=== PATIENT | female | born 1985 | race Hispanic/Latino ===

== ENCOUNTER 2017-12-02 09:11 | Emergency (ER) | payer MEDICAID, OTHER ==
[2017-12-02 09:55] LABS: BASOPHILS % (AUTO) 0.3 % (0.0-5.0); EOSINOPHILS % (AUTO) 1.1 % (0.0-8.0); HEMATOCRIT 44.6 % (36-48); LYMPHOCYTES % (AUTO) 24.9 % (21.0-51.0); MEAN CORPUSCULAR HEMOGLOBIN 30.5 pg (27.0-33.0); MEAN CORPUSCULAR HGB CONC 32.9 g/dL (32.0-36.0); MEAN CORPUSCULAR VOLUME 92.7 fL (79-99); MONOCYTES % (AUTO) 6.7 % (3.0-13.0); PLATELET COUNT (AUTO) 334 K/uL (130-400); RED BLOOD CELL COUNT(AUTO) 4.81 MIL/uL (4.00-5.50); RED CELL DISTRIBUTION WIDTH 12.8 % (11.0-15.5); WHITE BLOOD COUNT (AUTO) 11.7 K/uL (4.8-10.8)
[2017-12-02 10:07] LABS: INR 0.89 (0.85-1.15); PARTIAL THROMBOPLASTIN TIME 30.2 SEC (26.3-35.5); PROTHROMBIN TIME 9.4 SEC (9.6-11.6)
[2017-12-02 10:16] LABS: CREATININE 0.7 mg/dL (0.5-1.5)
[2017-12-02 10:21] LABS: ALBUMIN 3.9 g/dL (3.5-5.0); BILIRUBIN,TOTAL 0.2 mg/dL (0.2-1.0); TOTAL PROTEIN, SERUM 7.9 g/dL (6.0-8.3)
[2017-12-02 10:24] LABS: APPEARANCE,URINE Clear (CLEAR); BILIRUBIN,URINE Negative (NEGATIVE); COLOR,URINE Yellow (YELLOW); GLUCOSE, URINE (UA) Negative (NEGATIVE); KETONES,URINE Negative (NEGATIVE); LEUKOCYTE ESTERASE ,URINE Negative (NEGATIVE); NITRATE,URINE Negative (NEGATIVE); OCCULT BLOOD,URINE Trace (NEGATIVE); PROTEIN,URINE Negative (NEGATIVE); UROBILINOGEN,URINE 0.2 mg/dL (0.2-1.0)
[2017-12-02 10:34] LABS: BACTERIA,URINE Rare /HPF (None Seen); MUCUS,URINE Rare LPF (None Seen); RBC,URINE 0-1 /HPF (0-1); SQUAMOUS EPITHELIAL CELL,UR Few /HPF (0-2); WBC,URINE None Seen /HPF (0-1)
[2017-12-02] MEDS ORDERED: LEVOFLOXACIN 500 MG TABLET ONE (11:21)
[2017-12-02] MEDS ORDERED: METRONIDAZOLE 500MG/100ML BAG 100 ML ONE (11:22)
== END 2017-12-02 12:51 | disposition home or self-care (01) ==
LOC: EDH 09:11
DX: K57.92 Diverticulitis of intestine, part unspecified, without perforation or abscess without bleeding (principal); I10 Essential (primary) hypertension; Z87.891 Personal history of nicotine dependence; Z90.710 Acquired absence of both cervix and uterus
CPT/HCPCS: 36415; 74176; 80053; 81001; 82150; 82270; 83690; 85025; 85610; 85730; 96374; 99285; J3490

== ENCOUNTER → 2023-12-01 | Outpatient (CLI) | payer OTHER ==
[~2023-12-01] VITALS: Ht 10.2 cm; Wt 106.6 kg
== END | disposition home or self-care (01) ==
LOC: DTH 15:09
PROVIDERS: ATTEND Surgery
DX: G47.33 Obstructive sleep apnea (adult) (pediatric) (principal); E66.01 Morbid (severe) obesity due to excess calories; E11.9 Type 2 diabetes mellitus without complications; I10 Essential (primary) hypertension; M19.91 Primary osteoarthritis, unspecified site; E78.00 Pure hypercholesterolemia, unspecified; K76.0 Fatty (change of) liver, not elsewhere classified; K21.9 Gastro-esophageal reflux disease without esophagitis
CPT/HCPCS: 97802

== ENCOUNTER 2024-11-16 06:22 | Day surgery (SDC) | payer BC ==
[2024-11-12 08:50] LABS: BASOPHILS # (AUTO) 0.04 K/uL (0.00-0.20); BASOPHILS % (AUTO) 0.4 % (0.0-5.0); EOSINOPHILS # (AUTO) 0.18 K/uL (0.00-0.70); HEMATOCRIT 46.8 % (36-48); IMMATURE GRANULOCYTE ABSOLUTE 0.02 K/uL (0-1); LYMPHOCYTES # (AUTO) 4.3 K/uL (1.0-4.8); LYMPHOCYTES % (AUTO) 47.3 % (21.0-51.0); MEAN CORPUSCULAR HEMOGLOBIN 29.8 pg (27.0-33.0); MEAN CORPUSCULAR HGB CONC 32.1 g/dL (32.0-36.0); MEAN CORPUSCULAR VOLUME 92.9 fL (79-99); MONOCYTES # (AUTO) 0.7 K/uL (0.1-1.0); MONOCYTES % (AUTO) 7.9 % (3.0-13.0); NEUTROPHILS # (AUTO) 3.9 K/uL (1.8-7.7); NEUTROPHILS % (AUTO) 42.2 % (40.0-77.0); PLATELET COUNT (AUTO) 345 K/uL (130-400); RED BLOOD CELL COUNT(AUTO) 5.04 MIL/uL (4.00-5.50); RED CELL DISTRIBUTION WIDTH 12.5 % (11.0-15.5); WHITE BLOOD COUNT (AUTO) 9.1 K/uL (4.8-10.8)
[2024-11-12 09:02] LABS: ALBUMIN 4.1 g/dL (3.5-5.0); BILIRUBIN,TOTAL 0.2 mg/dL (0.2-1.0); CREATININE 0.6 mg/dL (0.5-1.0); POTASSIUM 4.4 mmol/L (3.5-5.1); TOTAL PROTEIN, SERUM 8.3 g/dL (6.0-8.3)
--- NOTE | 2024-11-12 09:23 | EKG ---
[facility] Test Date: 2024-11-12 Test Time: 08:44:43 Pat Name: AIDAN TELLES Department: [facility] Room: Gender: F Master Planner: [id number] : 1985 Requested By: FLEX HERNANDEZ Order Number: [id number] Reading MD: Reza Jerry Measurements Intervals [place] Rate: 91 P: 36 [place]: 130 QRS: 39 QRSD: 88 T: 38 QT: 370 QTc: 455 Interpretive Statements Normal sinus rhythm Compared to ECG 04/23/2024 14:38:07 Myocardial infarct finding no longer present Electronically Signed On 11-12-2024 17:34:30 CDT by Reza Jerry Please click the below link to view image of tracing.
--- NOTE | 2024-11-12 10:15 | HMCIMG ---
Exam Type: CHEST 1VW Clinical Information: PRE OP Comparison: None Findings: The lungs are clear of infiltrates. The heart is normal in size. The bony and soft tissue structures of the chest are unremarkable. Impression: Clear lungs.
[~2024-11-16] VITALS: Ht 162.6 cm; Wt 106.6 kg
[2024-11-16] VITALS (9 sets, daily range): BP systolic 100–139; BP diastolic 50–86; PULSE 78–90; RESP 16–18; TEMP 97.3–98.2
[~2024-11-16 06:22] MED LIST: HYDR-3422 PO; LOSA1TAB54 PO; PRAV20TA59 PO; TIRZ10PE SQ
[2024-11-16] MEDS: 0.9%NACL 1000ML 1,000 ML IV ONE (07:12)
[2024-11-16] MEDS ORDERED: ketaMINE 50MG/ML SYRINGE 50 MG/ML DISP.SYRIN ONE (08:31)
--- NOTE | 2024-11-16 09:38 | NUR ---
Full and complete discharge instructions given to Patient and Family both verbally and in writing. Explained GI procedure precautions and follow up. All questions answered. PIV removed with catheter tip intact. Home with Family W/C to POV.
== END 2024-11-16 09:35 | disposition home or self-care (01) ==
LOC: DAH 06:22
PROVIDERS: ATTEND Student in an Organized Health Care Education/Training Program
DX: R06.83 Snoring (principal); E66.01 Morbid (severe) obesity due to excess calories; K29.50 Unspecified chronic gastritis without bleeding; I10 Essential (primary) hypertension; E11.9 Type 2 diabetes mellitus without complications; E78.5 Hyperlipidemia, unspecified; E66.9 Obesity, unspecified; F41.9 Anxiety disorder, unspecified; J45.909 Unspecified asthma, uncomplicated; Z90.710 Acquired absence of both cervix and uterus; Z98.890 Other specified postprocedural states; Z68.41 Body mass index [BMI] 40.0-44.9, adult; Z79.899 Other long term (current) drug therapy
CPT/HCPCS: 80053; 85025; 36415; 71045; 93005; 82948 ×2; 88305; 88312; 43239; J7030; J3490; A4620; A4215 ×2; A4223; A4222; A4221; A4663; A4606